=== PATIENT | female | born 1990 | race Hispanic/Latino ===

== ENCOUNTER 2019-06-15 16:30 | Emergency (ER) | payer OTHER ==
[~2019-06-15] VITALS: Ht 160 cm; Wt 62.1 kg
[~2019-06-15 16:30] MED LIST: HYDROCORTISONE28 G3 TP; HYDROXYZINE HCL25 MG PO; PRENATAL-FOLIC1 EACH PO
[2019-06-15] MEDS ORDERED: ZOFRAN4 MG PO (17:08)
[2019-06-15] MEDS ORDERED: ACETAMINOPHEN-CO5 ML PO (17:08)
== END 2019-06-15 17:17 | disposition home or self-care (01) ==
LOC: ED 16:30
DX: J11.1 Influenza due to unidentified influenza virus with other respiratory manifestations (principal)
CPT/HCPCS: 99283

== ENCOUNTER 2020-12-07 05:59 | Inpatient (IN) | payer OTHER ==
[~2020-12-07] VITALS: Ht 157.5 cm; Wt 79.4 kg
[~2020-12-07 05:59] MED LIST changes: +ACETAMINOPHEN-CO5 ML PO; +ZOFRAN4 MG PO
--- NOTE | 2020-12-07 06:41 | NUR ---
[facility] RAPID COVID TEST DONE PER ORDER. COVID TEST COLLECTED FROM BOTH NARES W/O ISSUE. PT TOLERATED WELL.
--- NOTE | 2020-12-07 11:19 | PR ---
[facility] [address], [place] [address] Signed Progress Notes IP Datetime Report Generated by CPN: 12/07/2020 11:19 PROGRESS NOTES: [id number] Impression: Normal Progression of Labor; Reassuring Heart Rate Procedures: Artificial ROM; Sterile Vag Exam Plan: Continue Present Management VITAL SIGNS: [id number] Vital Signs: Reviewed VS Notable Details: mild HTN EXAM: [id number] Dilatation: 3.0 Effacement: 0 Station: -2 Contractions: q 2 to 5 min MEMBRANES: [id number] ROM Note: By Dr. Quintana Comments: Still pretty comfortable though dougie frequently. Progressing. Will continue. FETUS A: [id number] FHR Baseline: 145 Variability: Moderate 6-25bpm Accelerations: 15X15 Decelerations: Late FHR Category: Category II Presentation: Vertex Comments on Fetus A: recent lates FETUS B: [id number] Signing Physician: Arianna Quintana MD Copies: ~ *Electronically Signed* 12/07/20 1119 ARIANNA QUINTANA MD PATIENT NAME: AMBER ORTIZ PROGRESS NOTE DATE OF : 88 PHYSICIAN: ARIANNA QUINTANA MD RPT #: [id number] REPORT IS CONFIDENTIAL AND NOT TO BE RELEASED WITHOUT AUTHORIZATION
--- NOTE | 2020-12-07 11:52 | PR ---
[facility] [address] [facility] [place], [place] [address] Signed Progress Notes IP Datetime Report Generated by CPDanica: 12/07/2020 11:52 PROGRESS NOTES: [id number] Impression: Normal Progression of Labor Procedures: Scalp Electrode; Sterile Vag Exam Plan: Continue Present Management Other Plans: close observation VITAL SIGNS: [id number] Vital Signs: Reviewed VS Notable Details: mild HTN EXAM: [id number] Dilatation: 4.0 Effacement: 50 Station: -2 Contractions: q 2 to 5 min MEMBRANES: [id number] ROM Note: By Dr. Quintana Comments: Progressing yet still very comfortable. More variables seen though no palpable cord. Will given subq terb and continue close observation. FETUS A: [id number] FHR Baseline: 145 Variability: Moderate 6-25bpm Accelerations: 15X15 Decelerations: Late FHR Category: Category II Presentation: Vertex Comments on Fetus A: recent lates FETUS B: [id number] Signing Physician: Arianna Quintana MD Copies: ~ *Electronically Signed* 12/07/20 1152 ARIANNA QUINTANA MD PATIENT NAME: AMBER ORTIZ PROGRESS NOTE DATE OF : 88 PHYSICIAN: ARIANNA QUINTANA MD RPT #: [id number] REPORT IS CONFIDENTIAL AND NOT TO BE RELEASED WITHOUT AUTHORIZATION
--- NOTE | 2020-12-07 12:22 | PR ---
[facility] [address] [place], [place] [address] Signed Progress Notes IP Datetime Report Generated by CPN: 12/07/2020 12:22 PROGRESS NOTES: [id number] Impression: Non-reassuring Heart Rate Procedures: Intrauterine Pressure Catheter; Amnio Infusion Plan: Continue Present Management Other Plans: close observation VITAL SIGNS: [id number] Vital Signs: Reviewed VS Notable Details: mild HTN EXAM: [id number] Dilatation: 4.0 Effacement: 50 Station: -2 Contractions: q 2 to 5 min MEMBRANES: [id number] ROM Note: By Dr. Quintana Comments: Contractions w/o much change after terb and continued variables. Will place IUPC and begin amnioinfusion to see if this will allow fetus to recover and allow for progress. FETUS A: [id number] FHR Baseline: 145 Variability: Moderate 6-25bpm Accelerations: 15X15 Decelerations: Late FHR Category: Category II Presentation: Vertex Comments on Fetus A: recent lates FETUS B: [id number] Signing Physician: Arianna Quintana MD Copies: ~ *Electronically Signed* 12/07/20 1222 ARIANNA QUINTANA MD PATIENT NAME: AMBER ORTIZ PROGRESS NOTE DATE OF : 88 PHYSICIAN: ARIANNA QUINTANA MD RPT #: [id number] REPORT IS CONFIDENTIAL AND NOT TO BE RELEASED WITHOUT AUTHORIZATION
--- NOTE | 2020-12-07 12:55 | PR ---
[facility] [address] [facility] [place], [place] [address] Signed Progress Notes IP Datetime Report Generated by CPN: 12/07/2020 12:55 PROGRESS NOTES: [id number] Impression: Reassuring Heart Rate Procedures: Intrauterine Pressure Catheter; Amnio Infusion Plan: Continue Present Management Other Plans: close observation VITAL SIGNS: [id number] Vital Signs: Reviewed VS Notable Details: mild HTN EXAM: [id number] Dilatation: 4.0 Effacement: 50 Station: -2 Contractions: q 2 to 5 min MEMBRANES: [id number] ROM Note: By Dr. Quintana Comments: Contractions more uncomfortable but still not too bad. status currently improved after amnioinfusion. Will continue close observation. FETUS A: [id number] FHR Baseline: 145 Variability: Moderate 6-25bpm Accelerations: 15X15 Decelerations: Late FHR Category: Category II Presentation: Vertex Comments on Fetus A: recent lates FETUS B: [id number] Signing Physician: Arianna Quintana MD Copies: ~ *Electronically Signed* 12/07/20 6419 ARIANNA QUINTANA MD PATIENT NAME: AMBER ORTIZ PROGRESS NOTE DATE OF : 88 PHYSICIAN: ARIANNA QUINTANA MD RPT #: [id number] REPORT IS CONFIDENTIAL AND NOT TO BE RELEASED WITHOUT AUTHORIZATION
--- NOTE | 2020-12-07 15:21 | PR ---
[facility] [address] [facility] [place], [place] [address] Signed Progress Notes IP Datetime Report Generated by CPN: 12/07/2020 15:21 PROGRESS NOTES: [id number] Impression: Reassuring Heart Rate; Gest. HTN/PreEclampsia/Eclampsia Procedures: Sterile Vag Exam Other Procedures: U/S confirms VTX Plan: Continue Present Management Other Plans: close observation VITAL SIGNS: [id number] Vital Signs: Reviewed VS Notable Details: mild HTN EXAM: [id number] Dilatation: 4.5 Effacement: 50 Station: -3 Contractions: q 2 to 5 min MEMBRANES: [id number] ROM Note: By Dr. Quintana Comments: Minimal progress. Contractions adequate and status reassuring at this time. Will continue position changes. FETUS A: [id number] FHR Baseline: 145 Variability: Moderate 6-25bpm Accelerations: 15X15 Decelerations: Late FHR Category: Category II Presentation: Vertex Comments on Fetus A: recent lates FETUS B: [id number] Signing Physician: Arianna Quintana MD Copies: ~ *Electronically Signed* 12/07/20 1521 ARIANNA QUINTANA MD PATIENT NAME: AMBER ORTIZ PROGRESS NOTE DATE OF : 88 PHYSICIAN: ARIANNA QUINTANA MD RPT #: [id number] REPORT IS CONFIDENTIAL AND NOT TO BE RELEASED WITHOUT AUTHORIZATION
--- NOTE | 2020-12-07 18:03 | PR ---
[facility] [place] [facility] [address] [facility] [place], [place] [address] Signed Progress Notes IP Datetime Report Generated by SPIKE: 12/07/2020 18:03 PROGRESS NOTES: [id number] Impression: Normal Progression of Labor Procedures: Sterile Vag Exam Other Procedures: U/S confirms VTX Plan: Continue Present Management Other Plans: close observation VITAL SIGNS: [id number] Vital Signs: Reviewed VS Notable Details: mild HTN EXAM: [id number] Dilatation: 9.0 Effacement: 100 Station: 0 Contractions: q 2 to 5 min MEMBRANES: [id number] ROM Note: By Dr. Quintana Comments: Getting more comfortable after epidural. Progressing quickly. Anticipate soon. FETUS A: [id number] FHR Baseline: 145 Variability: Moderate 6-25bpm Accelerations: 15X15 Decelerations: Late FHR Category: Category II Presentation: Vertex Comments on Fetus A: recent lates FETUS B: [id number] Signing Physician: Arianna Quintana MD Copies: ~ *Electronically Signed* 12/07/20 180 ARIANNA QUINTANA MD PATIENT NAME: AMBER ORTIZ PROGRESS NOTE DATE OF : 88 PHYSICIAN: ARIANNA QUINTANA MD RPT #: [id number] REPORT IS CONFIDENTIAL AND NOT TO BE RELEASED WITHOUT AUTHORIZATION
--- NOTE | 2020-12-08 09:30 | PR ---
[facility] [address] [facility] [place], [place] [address] Signed PP Progress Notes Datetime Report Generated by C[employer]: 12/08/2020 09:30 SUBJECTIVE: [id number] Pain: Within Normal Limits Nausea/Vomiting: Denies Vital Signs: [id number] Vital Signs: Reviewed Notable Details: normal BPs since midnight Cardiovascular: Not Done Respiratory: Not Done Abdomen/Uterus: Abnormal Lochia: Normal Vulva/Perineum: Not Done Breasts: Not Done CVA Tenderness: Not Done Extremities: Normal Incision: Not Applicable Progress: Not Applicable Exam Comments: Fundus firm, NT @ U. H/H 10.9/32.1, WBC 16.1, plat 266k IMPRESSION/PLAN/PROCEDURES: [id number] Impression: Normal Progression Plan: Continue Present Management Procedures: None Progress Notes: Doing well overall. Signing Physician: Arianna Quintana MD Copies: ~ *Electronically Signed* 12/08/20929 ARIANNA QUINTANA MD PATIENT NAME: AMBER ORTIZ PROGRESS NOTE DATE OF : 88 PHYSICIAN: ARIANNA QUINTANA MD RPT #: [id number] REPORT IS CONFIDENTIAL AND NOT TO BE RELEASED WITHOUT AUTHORIZATION
--- NOTE | 2020-12-09 08:40 | PR ---
[facility] [address] [facility] [place], [place] [address] Signed PP Progress Notes Datetime Report Generated by CPN: 12/09/2020 08:40 SUBJECTIVE: [id number] Pain: Within Normal Limits Nausea/Vomiting: Denies Vital Signs: [id number] Vital Signs: Reviewed; Within Normal Limits Notable Details: normal BPs since midnight Cardiovascular: Not Done Respiratory: Not Done Abdomen/Uterus: Abnormal Lochia: Normal Vulva/Perineum: Not Done Breasts: Not Done CVA Tenderness: Not Done Extremities: Normal Incision: Not Applicable Progress: Not Applicable Exam Comments: Fundus firm, NT @ U-2. IMPRESSION/PLAN/PROCEDURES: [id number] Impression: Normal Progression Plan: Discharge Procedures: None Progress Notes: Doing well. She is ready for D/C. Signing Physician: Arianna Quintana MD Copies: ~ *Electronically Signed* 12/09/20839 ARIANNA QUINTANA MD PATIENT NAME: AMBER ORTIZ PROGRESS NOTE DATE OF : 88 PHYSICIAN: ARIANNA QUINTANA MD RPT #: [id number] REPORT IS CONFIDENTIAL AND NOT TO BE RELEASED WITHOUT AUTHORIZATION
== END 2020-12-09 11:00 | disposition home or self-care (01) | DRG 807 ==
LOC: FBC 05:59
PROVIDERS: ADMIT Obstetrics & Gynecology; ATTEND Obstetrics & Gynecology
PROC: 10E0XZZ Delivery of Products of Conception, External Approach (ICD-10-PCS; principal; 2020-12-07)
PROC: 10907ZC Drainage of Amniotic Fluid, Therapeutic from Products of Conception, Via Natural or Artificial Opening (ICD-10-PCS; 2020-12-07)
PROC: 10H07YZ Insertion of Other Device into Products of Conception, Via Natural or Artificial Opening (ICD-10-PCS; 2020-12-07)
PROC: 3E0E7GC Introduction of Other Therapeutic Substance into Products of Conception, Via Natural or Artificial Opening (ICD-10-PCS; 2020-12-07)
PROC: 00HU33Z Insertion of Infusion Device into Spinal Canal, Percutaneous Approach (ICD-10-PCS; 2020-12-07)
PROC: 3E0R3BZ Introduction of Anesthetic Agent into Spinal Canal, Percutaneous Approach (ICD-10-PCS; 2020-12-07)
PROC: 0KQM0ZZ Repair Perineum Muscle, Open Approach (ICD-10-PCS; 2020-12-07)
DX: O13.4 Gestational [pregnancy-induced] hypertension without significant proteinuria, complicating childbirth (principal); Z37.0 Single live birth; O76 Abnormality in fetal heart rate and rhythm complicating labor and delivery; Z20.822 Contact with and (suspected) exposure to COVID-19; Z3A.39 39 weeks gestation of pregnancy; O70.1 Second degree perineal laceration during delivery; O99.824 Streptococcus B carrier state complicating childbirth
CPT/HCPCS: 01960; 82565; 82570; 84156; 84450; 84520; 84550; 85027; A9270; C9803; J2001; J2540; J2550; J2590; J2795; J3105; U0003